=== PATIENT | female | born 1990 | race Two or more races ===

== ENCOUNTER 2024-01-13 08:47 | Emergency (ER) | payer MEDICAID ==
[~2024-01-13] VITALS: Ht 180.3 cm; Wt 109.5 kg
[2024-01-13 09:25] VITALS: BP 149/95; PULSE 98; RESP 16; TEMP 99; O2SAT 97
[2024-01-13] MEDS: KETOROLAC TROMETH 60MG/2ML VIAL IM ONE (09:29)
[2024-01-13] MEDS ORDERED: IBUP-1456 PO (09:51)
== END 2024-01-13 09:58 | disposition home or self-care (01) ==
LOC: ER 08:47
DX: M54.42 Lumbago with sciatica, left side (principal); Z79.1 Long term (current) use of non-steroidal anti-inflammatories (NSAID); X50.1XXA Overexertion from prolonged static or awkward postures, initial encounter; Y93.01 Activity, walking, marching and hiking; Y92.89 Other specified places as the place of occurrence of the external cause; Y99.8 Other external cause status
CPT/HCPCS: 72100; 96372; 99283; J1885

== ENCOUNTER 2024-05-13 17:05 | Emergency (ER) | payer MEDICAID ==
[~2024-05-13] VITALS: Ht 180.3 cm; Wt 106.3 kg
[~2024-05-13 17:05] MED LIST: IBUP-1456 PO
[2024-05-13 17:34] VITALS: BP 148/95; PULSE 93; RESP 16; TEMP 97.2; O2SAT 99
--- NOTE | 2024-05-13 17:34 | ED.PDOC ---
History of Present Illness(SKN HPI Comments A 33 YEAR OLD FEMALE PRESENTS TO THE ED WITH COMPLAINT OF LUMP OF LEFT AXILLA. PATIENT STATES SHE HAS HAD A LUMP IN HER LEFT AXILLA FOR THE PAST FEW YEARS AND NOTES IT BECAME MILD REDNESS AND PAINFUL OVER THE LAST 4 DAYS. PATIENT IS CONCERNED SHE HAS AN INFECTION TO THIS AREA. PT IS ABLE TO MOVE HER LEFT UPPER EXTREMITY WITH NORMAL ROM. PATIENT DENIES FEVER, CHILLS, SHORTNESS OF BREATH, CHEST PAIN, ABDOMINAL PAIN, NAUSEA, VOMITING, HEADACHE, OR OTHER COMPLAINTS. NO OTHER SYMPTOMS OR MODIFYING FACTORS AT THIS TIME. PATIENT IS ALERT, ORIENTED X 4, AND HAS STEADY GAIT. Chief Complaint: Abscess Time Seen by MD: 17:06 Primary Care Provider: UNKNOWN History of Present Illness: Nurses Notes, Medications, Allergies Allergies: Coded Allergies: NO KNOWN ALLERGIES (Unverified , 01/13/24) Home Meds Active Scripts Ibuprofen (Ibuprofen) 800 Mg Tab, 1 TAB PO TID, #30 TAB Prov:LAUREN DIAZ 05/13/24 Cephalexin Monohydrate (Cephalexin) 500 Mg Cap, 1 CAP PO QID, #40 CAP Prov:LAUREN DIAZ 05/13/24 Ibuprofen (Ibuprofen) 800 Mg Tab, 1 TAB PO TID, #30 TAB Prov:LAUREN DIAZ 01/13/24 Information Source: Patient Mode of Arrival: Ambulatory Severity: Moderate Timing: Weeks Duration: Since onset Prehospital treatment: None Location: Other (LEFT AXILLA) Mechanism: Spontaneous Onset Occurence: Indoors Object: None Condition of Object: None Retained Foreign Body: No Wound Type: Other (LIPOMA) Immunization Status of Animal: NA Tetanus: Unknown History of: None Associated Signs and Symptoms: Redness, Pain Past Medical History Past Medical History (Other): SCIATICA, DDD Surgical History: Denies all surgeries OFFICE SPEC History: No Pertinent OFFICE SPEC History Family History Family History: Reviewed,noncontributory to illness Social History Smoker: Non-Smoker Alcohol: Denies ETOH Use Drugs: Denies Drug Use Lives In: Home Constitutional: denies: chills, diaphoresis, fatigue, fever, malaise, sweats, weakness, others EENTM: denies: blurred vision, double vision, ear bleeding, ear discharge, ear drainage, ear pain, ear ringing, eye pain, eye redness, hearing loss, mouth pain, mouth swelling, nasal discharge, nose bleeding, nose congestion, nose pain, photophobia, tearing, throat pain, throat swelling, voice changes, others Respiratory: denies: cough, hemoptysis, orthopnea, SOB at rest, shortness of breath, SOB with excertion, stridor, wheezing, others Cardiovascular: denies: chest pain, dizzy spells, diaphoresis, Dyspnea on exertion, edema, irregular heart beat, left arm pain, lightheadedness, palpitations, PND, syncope, others Gastrointestinal: denies: abdomen distended, abdominal pain, blood streaked bowels, constipated, diarrhea, dysphagia, difficulty swallowing, hematemesis, melena, nausea, poor appetite, poor fluid intake, rectal bleeding, rectal pain, vomiting, others Genitourinary: denies: abnormal vagina bleeding, burning, dyspareunia, dysuria, flank pain, frequency, hematuria, incontinence, pain, , vagina discharge, urgency, others Neurological: denies: dizziness, fainting, headache, left sided numbness, left sided weakness, numbness, paresthesia, pre-existing deficit, right sided numbness, right sided weakness, seizure, speech problems, tingling, tremors, weakness, others Musculoskeletal: denies: back pain, gout, joint pain, joint swelling, muscle pain, muscle stiffness, neck pain, others Integumetry: reports: lumps (LUMP OF LEFT AXILLA); denies: bruises, change in color, change in hair/nails, dryness, laceration, lesions, rash, wounds, others Allergic/Immunocompromised: denies: Difficulty Healing, Frequent Infections, Hives, Itching, others Hematologic/Lymphatic: denies: anemia, blood clots, easy bleeding, easy bruising, swollen glands, others Endocrine: denies: excessive hunger, excessive sweating, excessive thirst, excessive urination, flushing, intolerance to cold, intolerance to heat, unexplained weight gain, unexplained weight loss, others Psychiatric: denies: anxiety, bipolar disorder, depression, hopeless, panic disorder, schizophrenia, sleepless, suicidal, others All Other Systems: Reviewed and Negative Physical Exam General Appearance: No Apparent Distress, Obese HEENT: Normal ENT Inspection, PERRL/EOMI, Pharynx Normal, TMs Normal Neck: Full Range of Motion, Non-Tender, Normal, Normal Inspection Respiratory: Chest Non-Tender, Lungs Clear, No Accessory Muscle Use, No Respiratory Distress, Normal Breath Sounds Cardiovascular: No Edema, No JVD, No Murmur, No Gallop, Normal Peripheral Pulses, Regular Rate/Rhythm Breast Exam: Deferred Gastrointestinal: No Organomegaly, Non Tender, No Pulsatile Mass, Normal Bowel Sounds, Soft Genitalia: Deferred Pelvic: Deferred Rectal: Deferred Extremities: No calf tenderness, Normal capillary refill, Normal range of motion, No pedal edema, Tender (WITH A BUMP ON LEFT LOWER AXILLA REGION, +LIPOMA, NO SWELLING, MILD REDNESS. ) Musculoskeletal : Apperance: Normal Neurologic: Alert, mica washer gluer II-XII nml as Tested, No Motor Deficits, Normal Affect, Normal Mood, No Sensory Deficits Cerebellar Function: Normal Reflexes: Normal Skin: Dry, Normal Color, Warm, Other (3CMX2.5CM BUMP WITH MILD LOCALIZED REDNESS AND TENDERNESS ON LEFT LOWER AXILLA REGION, +LIPOMA, NO PUS DRAINAGE AND OPEN WOUND. ) Peripheral Pulses: 2+ carotid (R), 2+ carotid (L) Lymphatic: No Adenopathy Was a procedure done? Was a procedure done?: No Differential Diagnosis (INTG) Differential Diagnosis: N/A Differential Diagnosis: Abscess, Cellulitis, Other (FURUNCLE, SKIN PIMPLE, LIPOMA) Differential Diagnosis: N/A Abscess: N/A Differential Diagnosis: N/A X-Ray, Labs, Meds, VS Vital Signs Date Time Temp Pulse Resp B/P (MAP) Pulse Ox O2 Delivery O2 Flow Rate FiO2 05/13/24 17:34 97.2 93 16 148/95 (112) 99 97.2 05/13/24 17:12 97.2 93 16 148/95 (112) 99 X-Ray, Labs, Meds, VS Comment EXTERNAL MEDICAL RECORDS REVIEWED: [NONE] INDEPENDENT HISTORIANS: [NONE] SOCIAL DETERMINANTS OF HEALTH: [NONE] LABS ORDERED: NONE REVIEWED AND INTERPRETED RESULTS: NONE IMAGING ORDERED: NONE TREATMENTS ORDERED: NONE PROCEDURES PERFORMED: NONE CRITICAL CARE TIME: NONE I HAVE DISCUSSED THE PATIENT WITH THE ATTENDING PHYSICIAN DR. LEONARD AND HE AGREES WITH THE PATIENT'S PLAN OF CARE AND DISPOSITION. BASED ON HISTORY OF PRESENT ILLNESS, AND PHYSICAL EXAM, PATIENT WILL BE D ISCHARGED HOME. DISCUSSED PLAN FOR DISCHARGE HOME WITH RX [KEFLEX AND IBUPROFEN 800MG]. MEDICATION WARNINGS GIVEN. SHARED DECISION MAKING: PATIENT INSTRUCTED TO FOLLOW UP WITH PRIMARY CARE PROVIDER IN 1-2 DAYS FOR RE-EVALUATION OF SYMPTOMS. PATIENT VERBALIZES UNDERSTANDING TO RETURN TO ED FOR NEW OR WORSENING SYMPTOMS OR IF FOLLOW UP WITH PCP CANNOT BE OBTAINED. PATIENT FEELS COMFORTABLE GOING HOME AT THIS TIME. ALL QUESTIONS ADDRESSED AT TIME OF DISCHARGE. Time of 1ST Reevaluation: 18:00 Reevaluation 1ST: Improved Patient Education/Counseling: Diagnosis, Treatment, Need For Follow Up Family Education/Counseling: Diagnosis, Treatment, Need For Follow Up Medical Screening: No EMC Exist At This Time Departure 1 Departure Time of Disposition: 18:00 Impression: Primary Impression: Lipoma of left axilla Additional Impression: Suspected soft tissue infection Disposition: HOME / SELF CARE / HOMELESS Condition: Stable Additional Instructions: FOLLOW-UP WITH PCP IN 1 TO 2 DAYS. TAKE MEDICATIONS PRESCRIBED. RETURN TO ED FOR ANY NEW OR WORSENING SYMPTOMS. e-Prescriptions Ibuprofen (Ibuprofen) 800 Mg Tab 1 TAB PO TID, #30 TAB Prov: LAUREN DIAZ 05/13/24 Cephalexin Monohydrate (Cephalexin) 500 Mg Cap 1 CAP PO QID, #40 CAP Prov: LAUREN DIAZ 05/13/24 Discharged With: Self Critical Care Note Critical Care Time?: No Stability Stability form required: No I personally scribed for LAUREN DIAZ ([email or web address]) on 05/13/24 at 17:34. Electronically submitted by Bassam Griffin ([email or web address]). LAUREN DIAZ May 13, 2024 17:34
[2024-05-13] MEDS ORDERED: CEPH500C PO (17:35)
== END 2024-05-13 17:39 | disposition home or self-care (01) ==
LOC: ER 17:05
DX: D17.22 Benign lipomatous neoplasm of skin and subcutaneous tissue of left arm (principal); M54.30 Sciatica, unspecified side

== ENCOUNTER 2025-01-23 04:46 | Emergency (ER) | payer MEDICAID ==
[~2025-01-23] VITALS: Ht 180.3 cm; Wt 95.6 kg
[~2025-01-23 04:46] MED LIST changes: +CEPH500C PO
[2025-01-23 04:48] VITALS: BP 141/100; PULSE 71; RESP 18; TEMP 97.5; O2SAT 98
[2025-01-23] MEDS ORDERED: ACE3T PO (05:02)
[2025-01-23] MEDS ORDERED: METH4PAK PO (05:02)
--- NOTE | 2025-01-23 05:03 | ED.PDOC ---
Back pain HPI HPI Comments 34-year-old female presents to ER with complaints of back pain x4 days. Patient with past medical history significant for chronic lumbar back pain and degenerative disc disease of lumbar spine reports that she started experiencing worsening lower lumbar back pain four days ago after waking up from "sleeping li ke a rock". Denies any trauma/falls/heavy lifting or known injury to cause or worsening lower lumbar back pain and rates her current pain a 9/10 diffuse to lower lumbar region with radiation down posterior bilateral legs. States that she is under the care of pain management and presents to ER ambulatory on arrival, with steady gait, in mild distress. Denies fever, body aches, chills, night sweats, nausea/vomiting, numbness/tingling, shortness of breath, chest pain, abdominal pain, extremity weakness, changes in urination/BM or any further symptoms/complaints Chief Complaint: Back Pain Time Seen by MD: 04:59 Primary Care Provider: UNKNOWN Allergies: Coded Allergies: NO KNOWN ALLERGIES (Unverified , 01/13/24) Home Meds Active Scripts Acetaminophen W/ Codeine (Tylenol W/Cod #3) 1 Tab Tb, 1 TAB PO Q6HPRN, #10 TAB 0 Refills Prov:MIRTA BRAVO 01/23/25 Methylprednisolone (Medrol Dosepak) 4 Mg Kristian, 4 MG PO UD, #21 TAB UAD Prov:MIRTA BRAVO 01/23/25 Ibuprofen (Ibuprofen) 800 Mg Tab, 1 TAB PO TID, #30 TAB Prov:LAUREN DIAZ 05/13/24 Cephalexin Monohydrate (Cephalexin) 500 Mg Cap, 1 CAP PO QID, #40 CAP Prov:LAUREN DIAZ 05/13/24 Ibuprofen (Ibuprofen) 800 Mg Tab, 1 TAB PO TID, #30 TAB Prov:LAUREN DIAZ 01/13/24 Mode of Arrival: Ambulatory Past Medical History Past Medical History (Other): Chronic lower lumbar back pain Degenerative disc disease of lumbar spine Surgical History: Denies all surgeries MACHINE LOAD CLERK History: No Pertinent MACHINE LOAD CLERK History [facility] [place] 01-21-25 Family History Family History: Unknown Social History Smoker: Non-Smoker Alcohol: Denies ETOH Use Drugs: Denies Drug Use Lives In: Home Constitutional: denies: chills, diaphoresis, fatigue, fever, malaise, sweats, weakness, others EENTM: denies: blurred vision, double vision, ear bleeding, ear discharge, ear drainage, ear pain, ear ringing, eye pain, eye redness, hearing loss, mouth pain, mouth swelling, nasal discharge, nose bleeding, nose congestion, nose pain, photophobia, tearing, throat pain, throat swelling, voice changes, others Respiratory: denies: cough, hemoptysis, orthopnea, SOB at rest, shortness of breath, SOB with excertion, stridor, wheezing, others Cardiovascular: denies: chest pain, dizzy spells, diaphoresis, Dyspnea on exertion, edema, irregular heart beat, left arm pain, lightheadedness, palpitations, PND, syncope, others Gastrointestinal: denies: abdomen distended, abdominal pain, blood streaked bowels, constipated, diarrhea, dysphagia, difficulty swallowing, hematemesis, melena, nausea, poor appetite, poor fluid intake, rectal bleeding, rectal pain, vomiting, others Genitourinary: denies: abnormal vagina bleeding, burning, dyspareunia, dysuria, flank pain, frequency, hematuria, incontinence, pain, , vagina discharge, urgency, others Neurological: denies: dizziness, fainting, headache, left sided numbness, left sided weakness, numbness, paresthesia, pre-existing deficit, right sided numbness, right sided weakness, seizure, speech problems, tingling, tremors, weakness, others Musculoskeletal: reports: others (As stated in HPI) Integumetry: denies: bruises, change in color, change in hair/nails, dryness, laceration, lesions, lumps, rash, wounds, others Allergic/Immunocompromised: denies: Difficulty Healing, Frequent Infections, Hives, Itching, others Hematologic/Lymphatic: denies: anemia, blood clots, easy bleeding, easy bruisin g, swollen glands, others Endocrine: denies: excessive hunger, excessive sweating, excessive thirst, excessive urination, flushing, intolerance to cold, intolerance to heat, unexplained weight gain, unexplained weight loss, others Psychiatric: denies: anxiety, bipolar disorder, depression, hopeless, panic disorder, schizophrenia, sleepless, suicidal, others Physical Exam General Appearance: Mild Distress HEENT: PERRL/EOMI Neck: Full Range of Motion, Non-Tender, Normal Respiratory: Chest Non-Tender, Lungs Clear, No Accessory Muscle Use, No Respiratory Distress, Normal Breath Sounds Cardiovascular: No Murmur, No Gallop, Regular Rate/Rhythm Breast Exam: Deferred Gastrointestinal: Non Tender, No Pulsatile Mass, Soft Genitalia: Deferred Pelvic: Deferred Rectal: Deferred Extremities: Normal capillary refill, Normal range of motion Musculoskeletal : Extremity Location: Back (TTP to bilateral lower lumbar paraspinals noted. Steady gait appreciated) Neurologic: Alert, No Motor Deficits, No Sensory Deficits Cerebellar Function: Normal Reflexes: Normal Skin: Dry, Normal Color, Warm Lymphatic: No Adenopathy Was a procedure done? Was a procedure done?: No Sedation Sedation?: No Back Pain Differential Dx Differential Diagnosis: AAA, Fracture, Urolithiasis, Other (UTI) X-Ray, Labs, Meds, VS Vital Signs Date Time Temp Pulse Resp B/P (MAP) Pulse Ox O2 Delivery O2 Flow Rate FiO2 01/23/25 04:48 97.5 71 18 141/100 98 97.5 Toradol 60 mg IM ordered Solu-Medrol 125 mg IM ordered Previous chart visits reviewed Patient neurovascularly intact and reported improvement in symptoms prior to discharge Advised on rest/no strenuous activity Advised to follow up with PCP and pain management in 1-2 days Patient verbalized understanding and agreeable with current plan of care Advised to return to ER immediately if symptoms worsen Time of 1ST Reevaluation: 04:40 Reevaluation 1ST: N/A Patient Education/Counseling: Diagnosis, Treatment, Prognosis, Need For Follow Up Family Education/Counseling: No Family Present SEPSIS Sepsis Screen Date sepsis recognized/suspect: Jan 23, 2025 Time Sepsis recognized/suspect: 0448 Recent Procedure: No On Antibiotic Therapy: No Respiratory Rate >20: No Heart Rate >90: No Temp<36 C (96.8 F) or >38.3 C: No SBP <90 or MAP <65 mmHG: No New Acute Mental Status Change: No Is the patient on CPAP, BIPAP,: No Vital Signs Date Time Temp Pulse Resp B/P (MAP) Pulse Ox O2 Delivery O2 Flow Rate FiO2 01/23/25 04:48 97.5 71 18 141/100 98 97.5 Departure 1 Departure Time of Disposition: 05:00 Impression: Primary Impression: Acute exacerbation of chronic low back pain Additional Impression: Hx of degenerative disc disease Disposition: HOME / SELF CARE / HOMELESS Condition: Stable e-Prescriptions Acetaminophen W/ Codeine (Tylenol W/Cod #3) 1 Tab Tb 1 TAB PO Q6HPRN, #10 TAB 0 Refills Prov: MIRTA BRAVO 01/23/25 Methylprednisolone (Medrol Dosepak) 4 Mg Kristian 4 MG PO UD, #21 TAB UAD Prov: MIRTA BRAVO 01/23/25 Discharged With: Self Critical Care Note Critical Care Time?: No Stability Stability form required: No Heart Score Heart Score: Heart Score Response (Comments) Value History N/A 0 EKG N/A 0 Age N/A 0 Risk Factors N/A 0 Troponin N/A 0 Total 0 MITRA BRAVO Jan 23, 2025 05:03
[2025-01-23] MEDS: methylPREDNISolone SOD SUCC 125 MG/2 ML VL IM ONE (05:41)
[2025-01-23] MEDS: KETOROLAC TROMETH 60MG/2ML VIAL IM ONE (05:42)
== END 2025-01-23 05:50 | disposition home or self-care (01) ==
LOC: ER 04:46
DX: G89.29 Other chronic pain (principal); M54.50 Low back pain, unspecified
CPT/HCPCS: 96372; 99284; J1885; J2919

== ENCOUNTER 2025-03-21 14:29 | Emergency (ER) | payer MEDICAID, OTHER ==
[~2025-03-21] VITALS: Ht 180.3 cm; Wt 91.7 kg
[~2025-03-21 14:29] MED LIST changes: +ACE3T PO; +METH4PAK PO
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
--- NOTE | 2025-03-21 15:58 | DVH ---
CLINICAL HISTORY: FALL TECHNIQUE: 3 views of the lumbar spine were obtained. COMPARISON: XY LUMBAR SPINE 3 VIEW on DOS: 01/13/24 FINDINGS: The alignment of the lumbar spine is normal. The vertebral body heights and intervertebral disc spaces are maintained. There is [id number] L4-L5 and L5-S1 disc space loss. There are multilevel endplate osteophytes. No acute fracture or dislocation is seen. Suture material projects over the left mid/ upper abdomen IMPRESSION: NO ACUTE RADIOGRAPHIC ABNORMALITY OF THE LUMBAR SPINE.
--- NOTE | 2025-03-21 15:58 | DVH ---
CLINICAL HISTORY: Fall injury. TECHNIQUE: Frontal view of the chest, and AP and oblique views of the right ribs were obtained. COMPARISON: None FINDINGS: Lungs are clear. No pneumothorax, pleural effusion, or focal consolidation. Cardiac and mediastinal contours are within normal limits in size. Pulmonary vasculature is normal. No acute fracture identified on Dedicated right rib radiographs. IMPRESSION: No evidence of acute disease in the chest. No acute fracture identified in the right ribs.
--- NOTE | 2025-03-21 16:07 | DVH ---
CT brain without contrast CLINICAL INDICATION: Fall FINDINGS: The study was performed in a multidetector scanner. This study performed taking axial images from the skull base up to the vertex. Both brain and bone windows are photographed. Dose lowering techniques have been used including automated exposure control and adjustment of mA and/or KV according to patient size. Normal and symmetrical shape and density of brain parenchyma above and below the tentorium is seen. There is no mass, midline shift or hydrocephalus. No intra/extra-axial collections demonstrated. There is no intracranial hemorrhage. The calvarium is intact. IMPRESSION: 1. Normal brain and skull. Computed Tomographic Radiation Dosimetry Report: Total CTDI vol = 60 mGy Total DLP = 1179 mGy-cm All CT scans at this medical facility are performed using dose modulation techniques as appropriate to a performed exam including the following: Automated exposure control was utilized; adjustment of the MA and/or KvP according to patient size; and use of iterative reconstruction technique.
[2025-03-21] MEDS: KETOROLAC TROMETH 60MG/2ML VIAL IM ONE (17:07)
[2025-03-21] MEDS ORDERED: METH-1182 PO (17:07)
[2025-03-21 17:21] VITALS: BP 132/99; PULSE 92; RESP 17; TEMP 97.9; O2SAT 96
== END 2025-03-21 16:41 | disposition home or self-care (01) ==
LOC: ER 14:29
DX: S39.012A Strain of muscle, fascia and tendon of lower back, initial encounter (principal); S20.211A Contusion of right front wall of thorax, initial encounter; G44.319 Acute post-traumatic headache, not intractable; W19.XXXA Unspecified fall, initial encounter; Y93.89 Activity, other specified; Y92.89 Other specified places as the place of occurrence of the external cause; Y99.0 Civilian activity done for income or pay
CPT/HCPCS: 70450; 71101; 72100; 96372; 99285; J1885